=== PATIENT | female | born 1930 | race Caucasian/White ===

== ENCOUNTER 2017-08-01 01:55 | Inpatient (IN) | payer MEDICARE, OTHER ==
[2017-08-01 03:12] LABS: Hematocrit 18.6 % (36.0-47.0); Mean Platelet Volume 7.1 fL (7.4-10.4); PTT 35.4 SEC (22.9-36.1); Prothrombin Time 33.8 SEC (12.0-14.7); Red Blood Cell (RBC) Count 2.57 mill/uL (4.20-5.40); White Blood Cell (WBC) Count 23.6 thou/uL (4.8-10.8)
[2017-08-01 03:29] LABS: ALT (SGPT) 9 U/L (8-55); AST (SGOT) 12 U/L (5-34); Alkaline Phosphatase 70 U/L (40-150); Anion Gap 11 mmol/L (10-20); BUN (Urea Nitrogen) 21 mg/dL (9.8-20.1); Bilirubin, Total 0.3 mg/dL (0.2-1.2); Calc. Creatinine Clearance 0 mL/min (70-130); Calcium 9.2 mg/dL (7.8-10.44); Carbon Dioxide 25 mmol/L (23-31); Chloride 107 mmol/L (98-107); Estimated GFR-MDRD 75; Globulin 3.1 g/dL (2.4-3.5); Protein, Total 6.3 g/dL (6.0-8.3)
[2017-08-01 03:41] LABS: Anisocytosis SLIGHT = 6-15 cells (100X) (0-5/hpf); Band 4 % (5-11); Hypochromia SLIGHT = 6-15 cells (100X) (0-5/hpf); Microcytosis SLIGHT = 6-15 cells (100X) (0-5/hpf); Neutrophil 79 % (42-75)
[2017-08-01 05:03] LABS: Iron 10 ug/dL (50-170); LDH 223 U/L (125-220); Transferrin, Serum 377 mg/dL (173-360)
[2017-08-01 05:13] LABS: Band 3 % (5-11); Elliptocytes SLIGHT = 2-5 cells (100X) (0-1/hpf); Hematocrit 18.5 % (36.0-47.0); Hypochromia MODERATE=16-30 cells (100X) (0-5/hpf); Mean Platelet Volume 7.1 fL (7.4-10.4); Microcytosis SLIGHT = 6-15 cells (100X) (0-5/hpf); Neutrophil 82 % (42-75); Polychromasia SLIGHT = 2-3 cells (100X) (0-2/hpf); Red Blood Cell (RBC) Count 2.55 mill/uL (4.20-5.40); Stomatocytes SLIGHT = 2-5 cells (100X) (0-1/hpf); White Blood Cell (WBC) Count 31.3 thou/uL (4.8-10.8)
[2017-08-01] MEDS ORDERED: Acetaminophen 325 MG TAB ONE (05:22)
[2017-08-01] MEDS ORDERED: HYDROcodone/Acetaminophen 5/325 mg Tablet PO PRN (07:22)
[2017-08-01] MEDS ORDERED: Ondansetron ODT 4 MG TAB PO PRN (07:22)
[2017-08-01] MEDS ORDERED: HYDROcodone/Acetaminophen 10/325 mg Tablet PO PRN (07:22)
[2017-08-01] MEDS ORDERED: Famotidine/PF 20 mg/2ml Vial SLOW IVP SCH (09:00)
[2017-08-01 09:24] LABS: Prothrombin Time 28.5 SEC (12.0-14.7)
--- NOTE | 2017-08-01 09:37 | HP ---
PRIMARY CARE PHYSICIAN: Marcos Rowland M.D. CHIEF COMPLAINT: Weakness. HISTORY OF PRESENT ILLNESS: Ms. Torre is a pleasant 87-year-old white female with history of hypert ension, hyperlipidemia, past hyperthyroidism status post partial thyroidectomy resulting in hypothyro idism and history of PEs. The patient is on chronic Coumadin. She presented to an outside emergency department complaining of weakness. It started about 3 weeks a go, it seemed to get slowly progressive. She feels very weak and tired. She had some increased dysp adrienne on exertion associated with it, but no PND or orthopnea. At the outside ER, labs were checked and showed a hemoglobin of 5 and a hematocrit of 17. She was gi sol vitamin K and FFP due to concern for GI bleed, though she had no history of melena, hematochezia, or hematemesis. She was transferred here for blood transfusion. Here evaluation was largely the same. Hemoglobin was 5.2. INR is 3.1 despite the FFP and the fresh frozen plasma. She was slightly tachycardic, but the highest ever got was 103. Her blood pressure h as been running 100/60. We were called for admission for symptomatic anemia. To me, the patient does specifically denied having any rectal bleeding or hematemesis. She had no ne w medications. She has had no recent travel or food borne illnesses. She denies any chest pain or n ausea, and vomiting. No diarrhea or constipation. No syncope, presyncope, or orthostasis symptoms. PAST MEDICAL HISTORY: 1. Essential hypertension. 2. Hyperlipidemia. 3. Pulmonary emboli. 4. Surgical hypothyroidism. 5. Long-term anticoagulation with Coumadin. PAST SURGICAL HISTORY: Include: 1. Partial hysterectomy, vaginal approach. 2. Partial thyroidectomy. HOME MEDICATIONS: 1. Ultracet 37.5/325 one tablet as needed. 2. Zocor 40 mg p.o. at bedtime. 3. Vitamin D2 of 50,000 units orally every week. 4. Norvasc 2.5 mg daily. 5. Remeron 15 mg p.o. at bedtime. 6. Valium 5 mg p.o. as needed for anxiety. 7. Hyzaar 100/25 1/2 tablet every morning. 8. Coumadin 2.5 mg daily. 9. Levothyroxine daily, dose unknown. ALLERGIES: To CODEINE causes headache. FAMILY HISTORY: Negative for clotting or bleeding disorders. No immune dysfunction, no hematologic cancers. SOCIAL HISTORY: Negative for habits x3. She is for the last couple of years and lives with her daughter. REVIEW OF SYSTEMS: A 10-point review of systems was performed, negative for all other systems except as stated as per HPI. PHYSICAL EXAMINATION: VITAL SIGNS: Temperature 98.2, pulse 103, blood pressure 99/66, respiratory rate 18, satting 98% on 4 liters. GENERAL: She is awake. She is alert. She is oriented x3. She is an obese, elderly female, who alyssa ears pale, but in no acute distress. HEENT: Normocephalic, atraumatic. Pupils equal, reactive bilaterally, mucous membranes moist, witho ut visible lesions or thrush. NECK: Supple with no lymphadenopathy, JVD, or thyromegaly with normal carotid upstrokes. LUNGS: Clear, she has no wheezes, no rales, no rhonchi. No prolonged expiratory phase and good air movement. Symmetrical chest excursion. CARDIOVASCULAR: Shows normal S1, S2. She is slightly tachycardic, but regular. She has a faint 2/6 systolic ejection murmur best heard at the left upper sternal border without radiation. ABDOMEN: Obese, it is nontender, nondistended, no mass or organomegaly. EXTREMITIES: Show no cyanosis, no clubbing with 1+ edema of the lower extremities to just above the ankles. SKIN: Warm, moist, well perfused. She has no rashes, no lesions. MUSCULOSKELETAL EXAM: Normal to inspection without any palpable joint effusions or arthritis. NEUROLOGIC EXAM: Cranial nerves II through XII are grossly intact without any focal neurologic defic its. She has normal speech pattern and 5/5 strength. LABORATORY DATA: CMP is normal. Creatinine is 0.74, potassium 3.8. Sodium 139 and calcium of 9.2. Glucose 133. Liver functions are normal including total bilirubin. CBC showed a white count of 23. 6. She has 79% granulocytes with 4% bands, hemoglobin is 5.2, hematocrit of 18.6, and platelet count is 406,000. RADIOGRAPHIC STUDIES: None. ASSESSMENT AND PLAN: 1. Symptomatic anemia: We will transfuse 2 units of packed red blood cells and watch her hemoglobin and hematocrit closely. 2. Leukocytosis with bandemia: I am concerned this may be a hematologic malignancy. I have ordered LDH, haptoglobin, iron studies, and reticulocyte count. If her LDH is elevated, she will need a Hem atology consult. 3. History of pulmonary embolus with chronic anticoagulation. Patient has no signs of bleeding at t his point. We will keep her on the Coumadin for the time being. She had FFP and vitamin K with mini mal reversal. We will not attempt to reverse any further at this point. 4. Hypertension. Continue home medications. 5. Hyperlipidemia. Hold Zocor right now. 6. Hypothyroidism on levothyroxine, dose unknown. We will hold treatment for today.
[2017-08-01] MEDS: Pantoprazole 40 MG VIAL IVP SCH ×2 (10:26→20:48)
[2017-08-01 10:32] VITALS: BMI 34.4
--- NOTE | 2017-08-01 11:26 | PDOC.EVN ---
Event Note - Event Note Event Note: Pt seen and examined.chart reviewed.care discussed w pt and son at bedside. s/p 2 unit PRBC.repeat H/H pending. hemodynamically stable. feels a little better. VSS. appears pale and weak. CTA b/l.No abd tenderness,distension. Will follow labs. Pt will need both GI and hematology f/u. FOBt negative and no hematochezia or melena.But pt is on coumadin.Will request GI recs .GI bleed less likley.hold coumadin for now.Last EGD/Colonoscopy 15 years ago. Peripheral smear pending.high LDH.Doubt hemolysis. Hematological malignancy can not be ruled out given leucocytosis .If GI w/u negative,will consult Oncology for possible BM biopsy. For now, given presentation w symptomatic severe anemia w hypotension and supratherapeutic INR,will chnage to Inpatient.Pt not stable for Dc without further work up. Hold BP meds as Bp marginal
[2017-08-01] MEDS ORDERED: FLU VACC TS2017-18 (>65YR) 0.5 ML SYRINGE IM ONE (11:45)
[2017-08-01 14:10] LABS: Hematocrit 24.7 % (36.0-47.0)
[2017-08-01] MEDS: Sodium Chloride 0.9% 1,000 ML IV SCH ×2 (15:25→18:32)
--- NOTE | 2017-08-01 16:28 | CON ---
DATE OF CONSULTATION: 08/01/2017 REQUESTING PHYSICIAN: Dr. Hardy. REASON FOR CONSULTATION: Iron deficiency anemia. HISTORY OF PRESENT ILLNESS: Nandini Torre is a very pleasant 87-year-old woman. She has a history of pulmonary embolus 6-7 years ago and has been on warfarin since then. She denies any prior bleeding complications from this. She reports having had a normal EGD and colonoscopy about 15 years ago. Nicole peck was admitted to the hospital after being transferred from an outside ER with severe symptomatic ane eb. She reports that over the past 3 weeks she has had some progressive weakness, worsening to dysp adrienne on exertion. In the outside ER, her hemoglobin was 5. I am not sure what her INR was there, but she was given FFP. By the time of transfer here, her INR was still elevated at 3.1 and today it is still 2.6, hemoglobin was 5.2 and she is currently getting transfused with RBCs. BUN is only 21 with creatinine 0.74. Notably, through all of this, the patient denies any overt bleeding from anywhere. No vaginal bleeding, no epistaxis, no hematemesis, no melena or hematochezia that she can see. She says her bowel movements are essentially regular with some occasional mild constipation which is wel l controlled. She denies any abdominal pain, heartburn or dysphagia. She is not on any acid suppres araceli. Labs do demonstrate iron deficiency, but they also demonstrated an elevated LDH and a leukocyt osis which is quite striking of 31.3. Peripheral smear and haptoglobin are pending. Evidently her F OBT was negative at the outside facility, but I do not see documentation of that other than the admis araceli note. REVIEW OF SYSTEMS: Full review of systems including constitutional, head, eyes, ears, nose, throat, GI, , cardiovascular, respiratory, musculoskeletal, and neurologic systems is negative except as no donte in the HPI. PAST MEDICAL HISTORY: Hypertension, hyperlipidemia, thyroidectomy, pulmonary embolus 6-7 years ago, on chronic warfarin since then, partial hysterectomy, reported normal EGD and colonoscopy 15 years ag o. SOCIAL HISTORY: No smoking, alcohol, or drug use. FAMILY HISTORY: Noncontributory. ALLERGIES: CODEINE. OUTPATIENT MEDICATIONS: Ultracet, Zocor, vitamin D2, Norvasc, Remeron, Valium, Hyzaar, Coumadin 2.5 mg daily, levothyroxine daily. PHYSICAL EXAMINATION: VITAL SIGNS: Temperature 98.3, pulse 82, blood pressure 106/67, 99% oxygen saturation on 3 liters na yadiel cannula. GENERAL: An 87-year-old woman lying comfortably in bed. She appears pale, but in no acute distress. SKIN: She is pale, no jaundice, no rashes were palpable. EYES: No scleral icterus. Extraocular movements intact. ENT: Mucous membranes moist, no oral lesions. LYMPH: No submandibular, supraclavicular lymphadenopathy. THYROID: Nontender to palpation. HEART: Regular rate and rhythm. LUNGS: Clear to auscultation bilaterally. ABDOMEN: Obese, bowel sounds present, soft, nondistended, nontender to palpation throughout. EXTREMITIES: No peripheral edema. VESSELS: Radial pulses 2+ bilaterally. NEUROLOGICAL: Cranial nerves II-XII intact bilaterally. No focal deficits. LABORATORY STUDIES: WBC 31.3, hemoglobin 5.2, MCV 72.3, platelets 398. Ferritin low at 2.26. Iron 10, TIBC 471, 2% iron saturation, BUN 21, creatinine 0.74, sodium 139, potassium 3.8, glucose 133. L DH elevated to 223. Peripheral smear is pending. INR initially elevated at 3.1, trended down to 2.6 . FOBT evidently negative in the outside ER. ASSESSMENT AND PLAN: 1. Iron deficiency anemia, severe, symptomatic. 2. Leukocytosis, unexplained. 3. Warfarin coagulopathy. The patient certainly has clear iron deficiency anemia, but this is in th e context of no overt bleeding, on chronic Coumadin for a long time. Occult gastrointestinal bleedin g lesion is certainly a possibility. On the other hand, she does have the striking leukocytosis and elevated LDH, and I share some concern for possible hematologic malignancy or bone marrow process. A t this time, I would advise holding the Coumadin and letting the INR trend down to a safer level for potential EGD and colonoscopy. In the meantime, continue with hematologic workup. We will not plan to perform any procedures tomorrow since we are waiting for the INR to normalize. We will let her ea t today, have her on clear liquid diet tomorrow, consider bowel perforation for EGD and colonoscopy, perhaps Wednesday or the next day. Thank you for the consultation. Please call with questions or concerns.
[2017-08-01 21:30] LABS: Bilirubin Negative (Negative); Blood, Urine Large (Negative); Glucose, Urine (Dipstick) Negative (Negative); Ketone, Urine Negative (Negative); Nitrite Negative (Negative); Protein, Urine (Dipstick) Negative (Neg-Trace); Urobilinogen 0.2 mg/dL (0.2-1.0)
[2017-08-01 21:32] LABS: Bacteria/HPF 1+ HPF (None Seen); Hyaline Casts/LPF 7-10 HYALINE CAST LPF (0-3 Hyaline); WBC/HPF 0-3 HPF (0-3)
[2017-08-02] MEDS: Sodium Chloride 0.9% 1,000 ML IV SCH ×2 (00:45→12:01)
[2017-08-02 05:38] LABS: Anion Gap 11 mmol/L (10-20); BUN (Urea Nitrogen) 13 mg/dL (9.8-20.1); Calc. Creatinine Clearance 83 mL/min (70-130); Calcium 8.7 mg/dL (7.8-10.44); Carbon Dioxide 24 mmol/L (23-31); Chloride 109 mmol/L (98-107); Estimated GFR-MDRD 75
[2017-08-02 05:51] LABS: #Basophils 0.1 thou/uL (0.0-0.2); #Eosinphils 0.2 thou/uL (0.0-0.7); #Lymphocytes 5.1 thou/uL (1.20-3.40); #Neutrophils 15.5 thou/uL (1.40-6.50); %Basophils 0.4 % (0.0-1.0); %Eosinophils 0.7 % (0.0-10.0); %Lymphocytes 22.3 % (21.0-51.0); %Monocytes 8.9 % (0.0-10.0); Anisocytosis SLIGHT = 6-15 cells (100X) (0-5/hpf); Hematocrit 24.3 % (36.0-47.0); Hypochromia SLIGHT = 6-15 cells (100X) (0-5/hpf); Mean Platelet Volume 7.8 fL (7.4-10.4); Red Blood Cell (RBC) Count 3.05 mill/uL (4.20-5.40); White Blood Cell (WBC) Count 22.9 thou/uL (4.8-10.8)
[2017-08-02] MEDS: Pantoprazole 40 MG VIAL IVP SCH ×2 (08:23→21:03)
[2017-08-02] MEDS: Acetaminophen 325 MG TAB PO PRN (08:23)
[2017-08-02] MEDS ORDERED: GoLYTELY 4,000 ml Bottle PO SCH (10:15)
--- NOTE | 2017-08-02 10:33 | PRG ---
DATE OF SERVICE: 08/02/2017 GASTROINTESTINAL INPATIENT DAILY PROGRESS NOTE SUBJECTIVE: Ms. Torre is feeling okay, but quite weak. She had some nasal congestion last night wh ich is better now. She spiked a fever this morning, but really did not feel that subjectively. Ther e is no cough, no pain. No melena or hematochezia. PHYSICAL EXAMINATION: VITAL SIGNS: Temperature 101.3, pulse 99, blood pressure 118/77, 95% oxygen saturation on 2 liters n mal cannula. GENERAL: Pale, no acute distress. HEART: Regular rate and rhythm. LUNGS: Clear to auscultation bilaterally. ABDOMEN: Bowel sounds present, soft and nontender to palpation. EXTREMITIES: No peripheral edema. LABORATORY STUDIES: WBC down to 22.9, hemoglobin 7.2, platelets 282. INR down to 2.0. Sodium 140, potassium 3.6, BUN 13, creatinine 0.74. Peripheral smear review is still pending. ASSESSMENT AND PLAN: 1. Iron deficiency anemia. 2. Warfarin coagulopathy, INR now trending down. 3. Leukocytosis, improving. Cause of the anemia remains unknown. She certainly has iron deficiency , but that does not explain the leukocytosis, lack of any overt bleeding despite being on Coumadin. From a GI standpoint, we will proceed with the endoscopic workup tomorrow. Administer bowel preparat ion tonight and plan for EGD and colonoscopy tomorrow, rule out occult bleeding lesion. I discussed this with the patient who desires to proceed.
--- NOTE | 2017-08-02 11:42 | PDOC.PN ---
- Subjective Encounter Start Date: 08/02/17 Encounter Start Time: 11:40 Subjective: still feels very weak and tired. no hematochezia/melena/hemetemesis -: low grade fever. no cough/SOB.denies dysuria/diarrhea/AP - Objective MAR Reviewed: Yes Vital Signs & Weight: Vital Signs (12 hours) Temp Pulse Resp BP Pulse Ox 08/02/17 09:05 101.3 F H 99 20 118/77 95 08/02/17 08:00 101.3 F H 99 20 98 08/02/17 04:00 99.2 F 106 H 20 113/60 93 L I&O: 08/01/17 08/02/17 08/03/17 06:59 06:59 06:59 Intake Total 2270 Output Total 1150 Balance 1120 Result Diagrams: 08/02/17 04:19 08/02/17 04:19 Additional Labs: Laboratory Tests 08/01/17 08/01/17 08/01/17 02:47 02:47 04:20 WBC 23.6 H Hgb 5.2 L* Plt Count 406 H INR 3.1 Iron 10 L % Saturation 2 L Transferrin 377 H Ferritin Lactate Dehydrogenase 223 H 08/01/17 08/01/17 08/01/17 04:20 04:20 09:08 WBC 31.3 H Hgb 5.2 L* Plt Count 398 INR 2.6 Iron % Saturation Transferrin Ferritin 2.26 L Lactate Dehydrogenase 08/01/17 08/02/17 08/02/17 14:04 04:19 04:19 WBC 22.9 H Hgb 7.6 L 7.2 L Plt Count 282 INR 2.0 Iron % Saturation Transferrin Ferritin Lactate Dehydrogenase Phys Exam - Physical Examination Constitutional: NAD pale,tired looking HEENT: PERRLA, moist MMs, sclera anicteric, oral pharynx no lesions Neck: no nodes, no JVD, supple, full ROM Respiratory: no wheezing, no rales, no rhonchi, clear to auscultation bilateral Cardiovascular: RRR, no significant murmur Gastrointestinal: soft, non-tender, no distention, positive bowel sounds Musculoskeletal: no edema, pulses present Neurological: non-focal, normal sensation, moves all 4 limbs Psychiatric: normal affect, A&O x 3 Skin: no rash Dx/Plan (1) Symptomatic anemia Code(s): D64.9 - ANEMIA, UNSPECIFIED Status: Acute (2) Fever Code(s): R50.9 - FEVER, UNSPECIFIED Status: Acute (3) UTI (urinary tract infection) Status: Suspected (4) Leucocytosis Code(s): D72.829 - ELEVATED WHITE BLOOD CELL COUNT, UNSPECIFIED Status: Acute (5) Chronic anticoagulation Code(s): Z79.01 - 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 -: appreciate GI input.Monitor INR.has be <2 for procedure -: Leucocytosis better but no clear explanation.? Infection.has fever -: will start empiric ABx for possible UTI.check CXR. -: will request hematology input for other causes of severe anemia * .cont to hold BP meds as BP on lower normal side. * am labs Review of Systems - Review of Systems Constitutional: Fever, Weakness, Malaise. negative: Chills, Sweats, Other Respiratory: negative: Cough, Dry, Shortness of Breath, Hemoptysis, SOB with Excertion, Pleuritic Pain, Sputum, Wheezing Cardiovascular: negative: Chest Pain, Palpitations, Orthopnea, Paroxysmal Noc. Dyspnea, Edema, Light Headedness, Other Gastrointestinal: negative: Nausea, Vomiting, Abdominal Pain, Diarrhea, Constipation, Melena, Hematochezia, Other Genitourinary: negative: Dysuria, Frequency, Incontinence, Hematuria, Retention , Other Musculoskeletal: negative: Neck Pain, Shoulder Pain, Arm Pain, Back Pain, Hand Pain, Leg Pain, Foot Pain, Other Neurological: negative: Weakness, Numbness, Incoordination, Change in Speech, Confusion, Seizures, Other - Medications/Allergies Allergies/Adverse Reactions: Allergies Allergy/AdvReac Type Severity Reaction Status Date / Time codeine Allergy Verified 08/01/17 10:29 Medications: Current Medications Acetaminophen (Tylenol) 650 mg PO Q4H PRN PRN Reason: Headache/Fever or Pain Last Admin: 08/02/17 08:23 Dose: 650 mg Hydrocodone Bitart/Acetaminophen (Eola 10/325) 1 tab PO Q4H PRN PRN Reason: Severe Pain (7-10) Hydrocodone Bitart/Acetaminophen (Eola 5/325) 1 tab PO Q4H PRN PRN Reason: Moderate Pain (4-6) Atorvastatin Calcium (Lipitor) 20 mg PO HS RASHEED Sodium Chloride (Normal Saline 0.9%) 1,000 mls @ 50 mls/hr IV .Q20H RASHEED Levofloxacin 750 mg/ Device 150 mls @ 100 mls/hr IVPB Q24HR RASHEED Ondansetron HCl (Zofran Odt) 4 mg PO Q6H PRN PRN Reason: Nausea/Vomiting Pantoprazole Sodium (Protonix) 40 mg IVP Q12HR RASHEED Last Admin: 08/02/17 08:23 Dose: 40 mg Polyethylene Glycol/Electrolytes (Golytely) 4,000 ml PO NOW RASHEED Stop: 08/02/17 12:00 Sodium Chloride (Flush - Normal Saline) 10 ml IVF PRN PRN PRN Reason: Saline Flush Last Admin: 08/01/17 20:49 Dose: 10 ml
--- NOTE | 2017-08-02 16:16 | RAD ---
PORTABLE AP CHEST: Date: 08-02-17 History: Fever, cough. FINDINGS: There is mild elevation of the right hemidiaphragm. Cardiac silhouette and pulmonary vasculature are within normal limits. There is minimal patchy density seen in the retrocardiac region left lung base which could be related to either atelectasis or focal area of pneumonitis. No obvious pleural effusio n is seen. There are degenerative changes noted in the spine. There is prominent left glenohumeral os teoarthropathy. Radiopaque catheter overlies the lower left neck. IMPRESSION: 1. Patchy density retrocardiac region left lung base which may be related to atelectasis; although, f ocal area of pneumonitis is a possibility. Follow up to resolution is recommended. 2. Elevation right hemidiaphragm. POS: SARAH
--- NOTE | 2017-08-02 20:57 | CON ---
DATE OF CONSULTATION: 08/02/2017 REASON FOR CONSULTATION: Anemia and leukocytosis. HISTORY OF PRESENT ILLNESS: Ms. Torre is a pleasant 87-year-old female with a past medical history of pulmonary embolism on anticoagulation. Over the past 4 weeks, has gotten increasingly short of breath and weak. She presented to the emergency room in [place] and had a hemoglobin of 5.1, her white count was 21.6 and her INR was 3.1. She was transferred to this facility for blood transfusion and workup for possible GI bleed. The patient admits to a past history of iron deficient anemia, but has not been on any iron pills for several years. She had a pulmonary embolism approximately 5 years ago, circumstances surrounding this embolism are unknown. She has been on Coumadin since that time and is managed by her primary care. She denies any hematuria, hematochezia, melena or epistaxis. She states she has been in her usual state of health until 4 weeks ago. Since admission, she has received 2 units of packed RBCs with improvement in her hemoglobin to 7.2. Her white count peaked at 31.3 and is now 22.9, her platelet count was mildly elevated at 406,000 on admission and is now at 282,000. She began to have a temperature this morning of 101.3 and is currently being worked up for infection. We were asked to see the patient regarding her elevated white count and anemia. PAST MEDICAL HISTORY: 1. Hypertension. 2. Hyperlipidemia. 3. Thyroidectomy. 4. Pulmonary embolism. 5. Iron deficient anemia. 6. Partial hysterectomy. PAST SURGICAL HISTORY: Colonoscopy 15 years ago. ALLERGIES: CODEINE. HOME MEDICATIONS: 1. Amlodipine 2.5 mg daily. 2. [place] eyedrops daily. 3. Losartan/hydrochlorothiazide daily. 4. Remeron 0.5 mg daily. 5. Zocor 40 mg daily. 6. Tramadol p.r.n. 7. Coumadin 2.5 mg daily. FAMILY HISTORY: No family history of GI or hematological malignancy. SOCIAL HISTORY: , lives with her daughter. No alcohol, tobacco or illicit drug use. REVIEW OF SYSTEMS: Constitutional: Denies fever, chills, night sweats, recent weight loss or gain. Eyes: No blurred or double vision. ENT: No pain, hoarseness, sore throat, or dysphagia. Cardiovascular: No chest pain, palpitations or syncope. Respiratory: Positive for shortness of breath, dyspnea on exertion. Gastrointestinal: No nausea, vomiting, diarrhea, constipation or abdominal pain. Genitourinary: No dysuria or hematuria. Musculoskeletal: No joint or back pain. Skin: No rash or pruritus. Hematologic: No bleeding, bruising or clotting. Neurologic: Positive for weakness, no headache, numbness, tingling or seizure activity. Psychiatric: Denies anxiety or depression. PHYSICAL EXAMINATION: VITAL SIGNS: Temperature is 101.3, pulse is 117, respiratory rate is 20, blood pressure is 118/77. She is 95% on 2 liters. GENERAL: This is a well-developed, well-nourished female, in no acute distress. HEENT: Normocephalic, atraumatic. Pupils equal and reactive to light. NECK: Supple. CARDIOVASCULAR: Regular rate and rhythm. LUNGS: Clear to auscultation. ABDOMEN: Soft, nontender, bowel sounds are positive. No organomegaly palpable. EXTREMITIES: No clubbing, cyanosis or edema. SKIN: No rash. HEMATOLOGIC: No petechia or purpura. NEUROLOGICAL: Nonfocal. PSYCHIATRIC: The patient is alert and oriented and appropriate. LYMPHATIC: There is no palpable lymphadenopathy. PERTINENT LABORATORY DATA AND X-RAY FINDINGS: Current WBCs are 22.9, hemoglobin 7.2, hematocrit 24.3, MCV is 79.8 and platelets are 282. She is at 67% neutrophils, 22% lymphocytes, 10% monocytes. PT is 23, INR is 2. Sodium is 140, potassium 3.6, chloride 109, CO2 is 24, BUN is 13, creatinine 0.74, calcium is 8.7. Iron is 10, TIBC is 471 and iron saturation is 2%, transferrin is 377, ferritin is 2.26, total bilirubin is 0.3, AST is 12, ALT is 9, alkaline phosphatase is 70. LDH is 223, serum total protein 6.3, albumin 3.2, globulin 3.1. Urine showed 1+ bacteria and moderate leukocyte esterase, negative nitrite. Chest x-ray is pending. ASSESSMENT: 1. Severe symptomatic anemia. 2. Iron deficiency. 3. Leukocytosis. 4. Febrile illness. DISCUSSION: The patient has been transfused 2 units. We will transfuse additional units for hemoglobin less than 7. She will need a dose of IV iron, which I ordered today. She is having colonoscopy tomorrow to rule out any malignancy. We will also check peripheral smear. I suspect her leukocytosis is reactive. She has been started on antibiotics for her fever. We will follow her CBC closely. Thank you for the consult. NASREEN
[2017-08-02] MEDS: Atorvastatin Calcium 20 MG TAB PO SCH (21:03)
[2017-08-03 05:38] LABS: Prothrombin Time 17.4 SEC (12.0-14.7)
[2017-08-03 05:58] LABS: #Eosinphils 0.1 thou/uL (0.0-0.7); #Lymphocytes 4.8 thou/uL (1.20-3.40); #Monocytes 2.1 thou/uL (0.11-0.59); #Neutrophils 14.2 thou/uL (1.40-6.50); %Basophils 0.2 % (0.0-1.0); %Eosinophils 0.3 % (0.0-10.0); %Lymphocytes 22.7 % (21.0-51.0); Hematocrit 21.4 % (36.0-47.0); Mean Platelet Volume 7.7 fL (7.4-10.4); Red Blood Cell (RBC) Count 2.67 mill/uL (4.20-5.40); White Blood Cell (WBC) Count 21.2 thou/uL (4.8-10.8)
[2017-08-03 06:04] LABS: Anion Gap 12 mmol/L (10-20); BUN (Urea Nitrogen) 10 mg/dL (9.8-20.1); Calc. Creatinine Clearance 84 mL/min (70-130); Calcium 8.7 mg/dL (7.8-10.44); Carbon Dioxide 24 mmol/L (23-31); Chloride 112 mmol/L (98-107); Estimated GFR-MDRD 76
[2017-08-03] MEDS ORDERED: Sodium Chloride 0.65% Nasal 44 ML BOT EA NARE PRN (07:46)
[2017-08-03] MEDS ORDERED: Loratadine 10 MG TAB PO PRN (07:46)
[2017-08-03] MEDS ORDERED: Diabetic Tussin 200 MG/10 ML UDCUP PO PRN (07:46)
[2017-08-03] MEDS ORDERED: Mag-Al 1200 mg/1200 mg/30 ML UDCUP PO PRN (07:46)
[2017-08-03] MEDS ORDERED: Loperamide HCl 2 MG CAP PO PRN (07:46)
[2017-08-03] MEDS ORDERED: hydrALAZINE 20 MG/ML VIAL SLOW IVP PRN (07:46)
[2017-08-03] MEDS ORDERED: Eucerin (Mineral Oil/Petrolatum,White) 30 gm Jar TOP PRN (07:46)
[2017-08-03] MEDS ORDERED: Senokot 8.6 MG TAB PO PRN (07:46)
[2017-08-03] MEDS ORDERED: Milk Of Magnesia 30 ML UDCUP PO PRN (07:46)
[2017-08-03] MEDS: Sodium Chloride 0.9% 1,000 ML IV SCH (08:27)
[2017-08-03] MEDS: Pantoprazole 40 MG VIAL IVP SCH ×2 (08:28→21:15)
[2017-08-03] MEDS: Famotidine 20 MG TAB PO SCH ×2 (08:28→21:15)
--- NOTE | 2017-08-03 11:38 | PDOC.PN ---
- Subjective Encounter Start Date: 08/03/17 Encounter Start Time: 10:50 -: old records requested/rev pt is very weak, no bleeding from any site, son present bedside - Objective MAR Reviewed: Yes Vital Signs & Weight: Vital Signs (12 hours) Temp Pulse Pulse Resp BP BP Pulse Ox 08/03/17 08:34 99.7 F H 84 20 135/70 93 L 08/03/17 08:00 99.7 F H 85 20 08/03/17 06:00 99.6 F 82 18 110/59 L 92 L 08/03/17 00:00 100 F H 109 H 20 144/74 H 93 L I&O: 08/02/17 08/03/17 08/04/17 06:59 06:59 06:59 Intake Total 2270 0 Output Total 1150 Balance 1120 0 Result Diagrams: 08/03/17 04:09 08/03/17 04:09 Phys Exam - Physical Examination Constitutional: NAD HEENT: PERRLA, moist MMs, sclera anicteric Neck: no JVD, supple Respiratory: no wheezing, no rales, no rhonchi Cardiovascular: RRR, no significant murmur, no rub Gastrointestinal: soft, non-tender, no distention, positive bowel sounds Musculoskeletal: pulses present, edema present Neurological: non-focal, normal sensation Lymphatic: no nodes Psychiatric: normal affect Skin: no rash, normal turgor Dx/Plan (1) Fever Code(s): R50.9 - FEVER, UNSPECIFIED Status: Acute (2) Leucocytosis Code(s): D72.829 - ELEVATED WHITE BLOOD CELL COUNT, UNSPECIFIED Status: Acute (3) Symptomatic anemia Code(s): D64.9 - ANEMIA, UNSPECIFIED Status: Acute (4) Chronic anticoagulation Code(s): Z79.01 - ASSISTED (CURRENT) USE OF ANTICOAGULANTS Status: Chronic (5) Dyslipidemia Code(s): E78.5 - HYPERLIPIDEMIA, UNSPECIFIED Status: Chronic (6) HTN (hypertension) Code(s): I10 - ESSENTIAL (PRIMARY) HYPERTENSION Status: Chronic (7) History of pulmonary embolism Code(s): Z86.711 - PERSONAL HISTORY OF PULMONARY EMBOLISM Status: Chronic (8) Obesity (BMI 30-39.9) Code(s): E66.9 - OBESITY, UNSPECIFIED Status: Chronic (9) UTI (urinary tract infection) Status: Suspected - Plan cont current plan of care, plan discussed w/ family, continue antibiotics, PT/OT , health care social worker * today plan for EGD and colonoscopy * today will transfuse one unit PRBC * pt will need placement on discharge * continue selected home meds * medication reviewed as below * symptomatic treatment. * continue levaquin * so far culture negative * discussed with son Review of Systems - Review of Systems Constitutional: Weakness, Malaise. negative: Fever, Chills, Sweats, Other ENT: negative: Ear Pain, Ear Discharge, Nose Pain, Nose Discharge, Nose Congestion, Mouth Pain, Mouth Swelling, Throat Pain, Throat Swelling, Other Respiratory: SOB with Excertion. negative: Cough, Dry, Shortness of Breath, Hemoptysis, Pleuritic Pain, Sputum, Wheezing Cardiovascular: negative: Chest Pain, Palpitations, Orthopnea, Paroxysmal Noc. Dyspnea, Edema, Light Headedness, Other Gastrointestinal: negative: Nausea, Vomiting, Abdominal Pain, Diarrhea, Constipation, Melena, Hematochezia, Other Genitourinary: negative: Dysuria, Frequency, Incontinence, Hematuria, Retention , Other Musculoskeletal: negative: Neck Pain, Shoulder Pain, Arm Pain, Back Pain, Hand Pain, Leg Pain, Foot Pain, Other Skin: negative: Rash, Lesions, Abdifatah, Bruising, Other - Medications/Allergies Allergies/Adverse Reactions: Allergies Allergy/AdvReac Type Severity Reaction Status Date / Time codeine Allergy Verified 08/01/17 10:29 Medications: Current Medications Acetaminophen (Tylenol) 650 mg PO Q4H PRN PRN Reason: Headache/Fever or Pain Last Admin: 08/02/17 08:23 Dose: 650 mg Hydrocodone Bitart/Acetaminophen ([place] 10/325) 1 tab PO Q4H PRN PRN Reason: Severe Pain (7-10) Hydrocodone Bitart/Acetaminophen ([place] 5/325) 1 tab PO Q4H PRN PRN Reason: Moderate Pain (4-6) Al Hydroxide/Mg Hydroxide (Maalox) 15 ml PO Q4H PRN PRN Reason: Heartburn or Indigestion Atorvastatin Calcium (Lipitor) 20 mg PO HS [facility] Last Admin: 08/02/17 21:03 Dose: 20 mg Famotidine (Pepcid) 20 mg PO BID [facility] Last Admin: 08/03/17 08:28 Dose: 20 mg Guaifenesin (Robitussin Sf) 200 mg PO Q4H PRN PRN Reason: Cough Hydralazine HCl (Apresoline) 10 mg SLOW IVP Q4H PRN PRN Reason: Systolic BP > 180 Sodium Chloride (Normal Saline 0.9%) 1,000 mls @ 50 mls/hr IV .Q20H [facility] Last Admin: 08/03/17 08:27 Dose: 1,000 mls Levofloxacin 750 mg/ Device 150 mls @ 100 mls/hr IVPB Q24HR [facility] Last Admin: 08/02/17 12:00 Dose: 150 mls Loperamide HCl (Imodium) 2 mg PO PRN PRN PRN Reason: Diarrhea/Loose Stools Loratadine (Claritin) 10 mg PO DAILYPRN PRN PRN Reason: Sinus Symptoms Magnesium Hydroxide (Milk Of Magnesium) 30 ml PO DAILYPRN PRN PRN Reason: Constipation Mineral Oil/White Petrolatum (Eucerin Cream) 0 gm TOP BIDPRN PRN PRN Reason: Dry Skin Ondansetron HCl (Zofran Odt) 4 mg PO Q6H PRN PRN Reason: Nausea/Vomiting Pantoprazole Sodium (Protonix) 40 mg IVP Q12HR [facility] Last Admin: 08/03/17 08:28 Dose: 40 mg Senna (Senokot) 2 tab PO HSPRN PRN PRN Reason: Constipation Sodium Chloride (Flush - Normal Saline) 10 ml IVF PRN PRN PRN Reason: Saline Flush Last Admin: 08/03/17 08:28 Dose: 10 ml Sodium Chloride ([place] Nasal [place] 0.65%) 0 ml EA NARE QIDPRN PRN PRN Reason: Nasal Congestion
[2017-08-03] MEDS ORDERED: Lidocaine 1% PF 5 ML VIAL ONE (14:01)
[2017-08-03] MEDS ORDERED: Ondansetron HCl/PF 4 MG/2 ML Vial IVP PRN (16:27)
[2017-08-03] MEDS: Atorvastatin Calcium 20 MG TAB PO SCH (21:15)
[2017-08-04 05:06] LABS: #Basophils 0.1 thou/uL (0.0-0.2); #Eosinphils 0.3 thou/uL (0.0-0.7); #Lymphocytes 4.2 thou/uL (1.20-3.40); #Monocytes 1.8 thou/uL (0.11-0.59); #Neutrophils 10.3 thou/uL (1.40-6.50); %Basophils 0.8 % (0.0-1.0); %Eosinophils 1.7 % (0.0-10.0); %Monocytes 10.6 % (0.0-10.0); Hematocrit 27.1 % (36.0-47.0); Mean Platelet Volume 8.8 fL (7.4-10.4); Red Blood Cell (RBC) Count 3.36 mill/uL (4.20-5.40); White Blood Cell (WBC) Count 16.6 thou/uL (4.8-10.8)
[2017-08-04 05:11] LABS: Prothrombin Time 15.7 SEC (12.0-14.7)
[2017-08-04 05:29] LABS: Anion Gap 10 mmol/L (10-20); BUN (Urea Nitrogen) 8 mg/dL (9.8-20.1); Calc. Creatinine Clearance 84 mL/min (70-130); Carbon Dioxide 25 mmol/L (23-31); Chloride 110 mmol/L (98-107); Estimated GFR-MDRD 76
--- NOTE | 2017-08-04 06:52 | OP ---
PROCEDURES: Esophagogastroduodenoscopy and colonoscopy. PREPROCEDURE DIAGNOSES: 1. Severe iron deficiency anemia. 2. Chronic anticoagulation. POSTPROCEDURE DIAGNOSES: 1. Esophagogastroduodenoscopy was notable for a 10-cm sliding type hiatal hernia. No Kyle's ulce rs or erosions were noted in the hernia sac. 2. However, just below the level of the hiatal hernia at 40 cm in the gastric mucosa. There was a l inear ulcer that consistent with Ykle erosion. Biopsies were taken from this. It was white base and not bleeding. 3. Biopsies taken from the small bowel to rule out malabsorption. 4. Area of colitis was noted in the splenic flexure and descending colon consistent with ischemic co litis. It is unclear if this was a cause of the anemia, more likely it was an effect of the profound anemia, biopsies were taken and submitted to pathology. Colonoscopy was otherwise normal. ANESTHESIA: TIVA. RECOMMENDATIONS: 1. Hold anticoagulation. 2. Iron supplementation. 3. PPI therapy. PROCEDURE IN DETAIL: After the patient was informed of the risks, benefits, and possible complicatio ns of endoscopy including perforation, bleeding, reactions to medication and aspiration, informed con sent was obtained. The patient was brought to endoscopy suite where she was sedated in gradual fashi on. Once she was comfortable, a bite block was placed in incisural orifice. The endoscope was advanced through the esophagus, stomach, and second and third portion of duodenum. The esophagus was normal. There was a hiatal hernia 10 cm in size, sliding type, which was normal wi th no evidence of erosions or ulcerations in the hiatal hernia sac. However, just below the level of 40 cm in the body of the stomach, there was erosion on the greater curvilinear, white-based with no bleeding, this was biopsied. It appeared benign. This may be a Kyle's erosion. The remainder of the stomach was normal in forward and retroflexed views. The duodenum was normal to the third porti on, and biopsies were obtained. The scope was removed. The patient was turned in the room. A rectal examination was performed. The endoscope was advanced through the colon to the cecum, which was identified by ileocecal valve and a ppendiceal orifice. There was an area of edema, erythema, and ulceration with predominant antimesent jeffery border location along the splenic flexure and descending colon. This is very consistent with is chemic colitis. Multiple biopsies were obtained and submitted to Pathology. No other lesions were s een. Retroflexed views were normal. The scope was removed. The patient tolerated the procedure wel l with no complications.
[2017-08-04] MEDS ORDERED: Furosemide 20 MG/2 ML VIAL SLOW IVP SCH (08:15)
[2017-08-04] MEDS: Famotidine 20 MG TAB PO SCH (08:20)
[2017-08-04] MEDS: Pantoprazole 40 MG VIAL IVP SCH ×2 (08:22→20:43)
[2017-08-04] MEDS: Iron Polysaccharides Complex 150 MG CAP PO SCH (08:28)
[2017-08-04] MEDS: Sodium Chloride 0.9% 1,000 ML IV SCH (08:36)
--- NOTE | 2017-08-04 12:30 | PDOC.PN ---
- Subjective Encounter Start Date: 08/04/17 Encounter Start Time: 07:15 Subjective: sob+ on exertion, feels weak - Objective MAR Reviewed: Yes Vital Signs & Weight: Vital Signs (12 hours) Temp Pulse Resp BP Pulse Ox Pulse Ox 08/04/17 09:07 93 L 08/04/17 09:04 96 08/04/17 08:20 98.8 F 93 22 H 158/82 H 96 08/04/17 08:00 98.8 F 93 22 H I&O: 08/03/17 08/04/17 08/05/17 06:59 06:59 06:59 Intake Total 1300 Balance 1300 Result Diagrams: 08/04/17 04:41 08/04/17 04:41 Phys Exam - Physical Examination HEENT: PERRLA, moist MMs Neck: no JVD, supple Respiratory: no wheezing rales+b/l Cardiovascular: RRR, no significant murmur Gastrointestinal: soft, non-tender, no distention, positive bowel sounds Musculoskeletal: no edema, pulses present Neurological: non-focal, moves all 4 limbs Psychiatric: A&O x 3 Dx/Plan (1) Symptomatic anemia Code(s): D64.9 - ANEMIA, UNSPECIFIED Status: Acute Comment: recieved a total of 3 units prbc (2) Dyslipidemia Code(s): E78.5 - HYPERLIPIDEMIA, UNSPECIFIED Status: Chronic (3) HTN (hypertension) Code(s): I10 - ESSENTIAL (PRIMARY) HYPERTENSION Status: Chronic Qualifiers: Hypertension type: essential hypertension Qualified Code(s): I10 - Essential (primary) hypertension (4) History of pulmonary embolism Code(s): Z86.711 - PERSONAL HISTORY OF PULMONARY EMBOLISM Status: Chronic (5) Obesity (BMI 30-39.9) Code(s): E66.9 - OBESITY, UNSPECIFIED Status: Chronic (6) UTI (urinary tract infection) Status: Suspected Qualifiers: Urinary tract infection type: acute cystitis Hematuria presence: without hematuria Qualified Code(s): N30.00 - Acute cystitis without hematuria - Plan is on protonix iv q12h, h/h:05/02 -: may switch levaquin to oral -: dc iv fluids, one dose lasix for vol overload -: PT to mobilize patient as tolerated -: will need HH with PT on discharge * . Review of Systems - Medications/Allergies Allergies/Adverse Reactions: Allergies Allergy/AdvReac Type Severity Reaction Status Date / Time codeine Allergy Verified 08/01/17 10:29 Medications: Current Medications Acetaminophen (Tylenol) 650 mg PO Q4H PRN PRN Reason: Headache/Fever or Pain Last Admin: 08/02/17 08:23 Dose: 650 mg Hydrocodone Bitart/Acetaminophen ([place] 10/325) 1 tab PO Q4H PRN PRN Reason: Severe Pain (7-10) Hydrocodone Bitart/Acetaminophen ([place] 5/325) 1 tab PO Q4H PRN PRN Reason: Moderate Pain (4-6) Al Hydroxide/Mg Hydroxide (Maalox) 15 ml PO Q4H PRN PRN Reason: Heartburn or Indigestion Atorvastatin Calcium (Lipitor) 20 mg PO HS [facility] Last Admin: 08/03/17 21:15 Dose: 20 mg Famotidine (Pepcid) 20 mg PO BID [facility] Last Admin: 08/04/17 08:20 Dose: 20 mg Guaifenesin (Robitussin Sf) 200 mg PO Q4H PRN PRN Reason: Cough Hydralazine HCl (Apresoline) 10 mg SLOW IVP Q4H PRN PRN Reason: Systolic BP > 180 Levofloxacin 750 mg/ Device 150 mls @ 100 mls/hr IVPB Q24HR [facility] Last Admin: 08/04/17 11:04 Dose: 150 mls Loperamide HCl (Imodium) 2 mg PO PRN PRN PRN Reason: Diarrhea/Loose Stools Loratadine (Claritin) 10 mg PO DAILYPRN PRN PRN Reason: Sinus Symptoms Magnesium Hydroxide (Milk Of Magnesium) 30 ml PO DAILYPRN PRN PRN Reason: Constipation Mineral Oil/White Petrolatum (Eucerin Cream) 0 gm TOP BIDPRN PRN PRN Reason: Dry Skin Ondansetron HCl (Zofran Odt) 4 mg PO Q6H PRN PRN Reason: Nausea/Vomiting Pantoprazole Sodium (Protonix) 40 mg IVP Q12HR [facility] Last Admin: 08/04/17 08:22 Dose: 40 mg Polysaccharide Iron Complex (Niferex) 150 mg PO QAM[facility] Last Admin: 08/04/17 08:28 Dose: 150 mg Senna (Senokot) 2 tab PO HSPRN PRN PRN Reason: Constipation Sodium Chloride (Flush - Normal Saline) 10 ml IVF PRN PRN PRN Reason: Saline Flush Last Admin: 08/04/17 11:04 Dose: 10 ml Sodium Chloride ([place] Nasal [place] 0.65%) 0 ml EA NARE QIDPRN PRN PRN Reason: Nasal Congestion
[2017-08-04] MEDS: Acetaminophen 325 MG TAB PO PRN (20:42)
[2017-08-04] MEDS: Atorvastatin Calcium 20 MG TAB PO SCH (20:43)
[2017-08-05 08:18] LABS: Anion Gap 12 mmol/L (10-20); BUN (Urea Nitrogen) 7 mg/dL (9.8-20.1); Calc. Creatinine Clearance 89 mL/min (70-130); Calcium 8.9 mg/dL (7.8-10.44); Carbon Dioxide 26 mmol/L (23-31); Chloride 109 mmol/L (98-107); Estimated GFR-MDRD 81
[2017-08-05 08:27] LABS: Band 2 % (5-11); Hypochromia SLIGHT = 6-15 cells (100X) (0-5/hpf); Mean Platelet Volume 8.9 fL (7.4-10.4); Neutrophil 50 % (42-75); Red Blood Cell (RBC) Count 3.45 mill/uL (4.20-5.40); White Blood Cell (WBC) Count 14.4 thou/uL (4.8-10.8)
[2017-08-05] MEDS: Iron Polysaccharides Complex 150 MG CAP PO SCH (08:28)
[2017-08-05] MEDS: Pantoprazole 40 MG VIAL IVP SCH ×2 (08:28→20:32)
--- NOTE | 2017-08-05 12:33 | PDOC.PN ---
- Subjective Encounter Start Date: 08/05/17 Encounter Start Time: 08:20 Subjective: no sob or fever this morning -: is feeling better - Objective MAR Reviewed: Yes Vital Signs & Weight: Vital Signs (12 hours) Temp Pulse Resp BP BP Pulse Ox 08/05/17 11:49 95 08/05/17 11:38 98.9 F 93 16 144/65 H 93 L 08/05/17 08:00 98.2 F 85 16 94 L 08/05/17 07:55 98.2 F 85 16 124/65 95 08/05/17 05:30 98.7 F I&O: 08/04/17 08/05/17 08/06/17 06:59 06:59 06:59 Intake Total 1300 1000 Balance 1300 1000 Result Diagrams: 08/05/17 07:48 08/05/17 07:48 Phys Exam - Physical Examination HEENT: PERRLA, sclera anicteric pallor+ Neck: no nodes, no JVD Respiratory: no wheezing, no rales Cardiovascular: RRR, no significant murmur Gastrointestinal: soft, non-tender, positive bowel sounds Musculoskeletal: pulses present Neurological: non-focal, moves all 4 limbs Psychiatric: A&O x 3 Dx/Plan (1) Symptomatic anemia Code(s): D64.9 - ANEMIA, UNSPECIFIED Status: Acute Comment: recieved a total of 3 units prbc (2) Dyslipidemia Code(s): E78.5 - HYPERLIPIDEMIA, UNSPECIFIED Status: Chronic (3) HTN (hypertension) Code(s): I10 - ESSENTIAL (PRIMARY) HYPERTENSION Status: Chronic Qualifiers: Hypertension type: essential hypertension Qualified Code(s): I10 - Essential (primary) hypertension (4) History of pulmonary embolism Code(s): Z86.711 - PERSONAL HISTORY OF PULMONARY EMBOLISM Status: Chronic (5) Obesity (BMI 30-39.9) Code(s): E66.9 - OBESITY, UNSPECIFIED Status: Chronic (6) UTI (urinary tract infection) Status: Suspected Qualifiers: Urinary tract infection type: acute cystitis Hematuria presence: without hematuria Qualified Code(s): N30.00 - Acute cystitis without hematuria - Plan is on levaquin for uti -: oral iron -: wbc around 14 today -: will need outpt f/u with onc -: GI w/u was -ve for serious bleed to drop Hb to 5g * . Review of Systems - Medications/Allergies Allergies/Adverse Reactions: Allergies Allergy/AdvReac Type Severity Reaction Status Date / Time codeine Allergy Verified 08/01/17 10:29 Medications: Current Medications Acetaminophen (Tylenol) 650 mg PO Q4H PRN PRN Reason: Headache/Fever or Pain Last Admin: 08/04/17 20:42 Dose: 650 mg Hydrocodone Bitart/Acetaminophen ([place] 10/325) 1 tab PO Q4H PRN PRN Reason: Severe Pain (7-10) Last Admin: 08/04/17 23:35 Dose: 1 tab Hydrocodone Bitart/Acetaminophen ([place] 5/325) 1 tab PO Q4H PRN PRN Reason: Moderate Pain (4-6) Al Hydroxide/Mg Hydroxide (Maalox) 15 ml PO Q4H PRN PRN Reason: Heartburn or Indigestion Atorvastatin Calcium (Lipitor) 20 mg PO HS [facility] Last Admin: 08/04/17 20:43 Dose: 20 mg Guaifenesin (Robitussin Sf) 200 mg PO Q4H PRN PRN Reason: Cough Hydralazine HCl (Apresoline) 10 mg SLOW IVP Q4H PRN PRN Reason: Systolic BP > 180 Levofloxacin (Levaquin) 500 mg PO 0600 [facility] Last Admin: 08/05/17 05:32 Dose: 500 mg Loperamide HCl (Imodium) 2 mg PO PRN PRN PRN Reason: Diarrhea/Loose Stools Loratadine (Claritin) 10 mg PO DAILYPRN PRN PRN Reason: Sinus Symptoms Magnesium Hydroxide (Milk Of Magnesium) 30 ml PO DAILYPRN PRN PRN Reason: Constipation Mineral Oil/White Petrolatum (Eucerin Cream) 0 gm TOP BIDPRN PRN PRN Reason: Dry Skin Ondansetron HCl (Zofran Odt) 4 mg PO Q6H PRN PRN Reason: Nausea/Vomiting Pantoprazole Sodium (Protonix) 40 mg IVP Q12HR [facility] Last Admin: 08/05/17 08:28 Dose: 40 mg Polysaccharide Iron Complex (Niferex) 150 mg PO QAM-[facility] Last Admin: 08/05/17 08:28 Dose: 150 mg Senna (Senokot) 2 tab PO HSPRN PRN PRN Reason: Constipation Sodium Chloride (Flush - Normal Saline) 10 ml IVF PRN PRN PRN Reason: Saline Flush Last Admin: 08/05/17 08:28 Dose: 10 ml Sodium Chloride ([place] Nasal [place] 0.65%) 0 ml EA NARE QIDPRN PRN PRN Reason: Nasal Congestion
[2017-08-05] MEDS: Atorvastatin Calcium 20 MG TAB PO SCH (20:32)
[2017-08-06] MEDS: Acetaminophen 325 MG TAB PO PRN (01:09)
[2017-08-06 04:55] LABS: #Basophils 0.1 thou/uL (0.0-0.2); #Eosinphils 0.6 thou/uL (0.0-0.7); #Lymphocytes 5.8 thou/uL (1.20-3.40); %Basophils 0.6 % (0.0-1.0); %Lymphocytes 37.5 % (21.0-51.0); %Monocytes 12.7 % (0.0-10.0); Hematocrit 27.4 % (36.0-47.0); Mean Platelet Volume 7.6 fL (7.4-10.4); White Blood Cell (WBC) Count 15.5 thou/uL (4.8-10.8)
[2017-08-06 05:03] LABS: Anion Gap 5 mmol/L (10-20); BUN (Urea Nitrogen) 8 mg/dL (9.8-20.1); Calc. Creatinine Clearance 90 mL/min (70-130); Calcium 8.9 mg/dL (7.8-10.44); Carbon Dioxide 33 mmol/L (23-31); Chloride 106 mmol/L (98-107); Estimated GFR-MDRD 82
[2017-08-06 07:59] VITALS: BP 165/89; TEMP 98
[2017-08-06] MEDS: Iron Polysaccharides Complex 150 MG CAP PO SCH (08:55)
--- NOTE | 2017-08-06 10:28 | RAD ---
PORTABLE CHEST: Date: 08/06/17 HISTORY: Follow-up of infiltrate. COMPARISON: 08/02/17 exam. FINDINGS: Heart size is within normal limits. Retrocardiac density is again noted. This may possibly represent a large hiatal hernia. A lateral chest film is recommended for assessment. IMPRESSION: Persistent retrocardiac density. I suspect this is possibly a large hiatal hernia. A lateral chest fi lm is recommended to assess whether this is truly infiltrate or hiatal hernia that is causing this de nsity. POS: FLOYD
--- NOTE | 2017-08-06 14:45 | PDOC.PN ---
- Subjective Encounter Start Date: 08/06/17 Encounter Start Time: 07:15 Subjective: breathing better -: no chest pain or bleeding - Objective MAR Reviewed: Yes Vital Signs & Weight: Vital Signs (12 hours) Temp Pulse Resp BP Pulse Ox 08/06/17 08:00 98 F 98 16 91 L 08/06/17 07:58 98 F 98 16 165/89 H 95 08/06/17 04:00 98.7 F 08/06/17 03:00 98.8 F I&O: 08/05/17 08/06/17 08/07/17 06:59 06:59 06:59 Intake Total 1000 1000 240 Balance 1000 1000 240 Result Diagrams: 08/06/17 04:12 08/06/17 04:12 Phys Exam - Physical Examination HEENT: PERRLA, moist MMs Neck: no JVD, supple Respiratory: no wheezing, no rales Cardiovascular: RRR, no significant murmur Gastrointestinal: soft, non-tender, positive bowel sounds Musculoskeletal: no edema, pulses present Neurological: non-focal, moves all 4 limbs Psychiatric: normal affect, A&O x 3 Dx/Plan (1) Symptomatic anemia Code(s): D64.9 - ANEMIA, UNSPECIFIED Status: Acute Comment: recieved a total of 3 units prbc (2) Dyslipidemia Code(s): E78.5 - HYPERLIPIDEMIA, UNSPECIFIED Status: Chronic (3) HTN (hypertension) Code(s): I10 - ESSENTIAL (PRIMARY) HYPERTENSION Status: Chronic Qualifiers: Hypertension type: essential hypertension Qualified Code(s): I10 - Essential (primary) hypertension (4) History of pulmonary embolism Code(s): Z86.711 - PERSONAL HISTORY OF PULMONARY EMBOLISM Status: Chronic (5) Obesity (BMI 30-39.9) Code(s): E66.9 - OBESITY, UNSPECIFIED Status: Chronic (6) UTI (urinary tract infection) Status: Suspected Qualifiers: Urinary tract infection type: acute cystitis Hematuria presence: without hematuria Qualified Code(s): N30.00 - Acute cystitis without hematuria - Plan hemostable -: dc pt to snf today -: will need outpt f/u with onco to r/o MDS -: another 4 more days of levaquin for uti, blood cs are -ve * .
--- NOTE | 2017-08-07 07:57 | DIS ---
DATE OF ADMISSION: 08/01/2017 DATE OF DISCHARGE: 08/06/2017 DISCHARGE DISPOSITION: To [facility] bed. PRIMARY DISCHARGE DIAGNOSES: Symptomatic anemia with transfusion of 3 units of packed cell with uncl ear etiology, leukocytosis likely due to urinary tract infection. SECONDARY DISCHARGE DIAGNOSES: Hypertension, history of pulmonary embolism, obesity, and dyslipidemi a. PROCEDURES DONE DURING HOSPITALIZATION: The patient has had upper and lower endoscopies done by Dr. Villafuerte. EGD showed a 10-cm sliding type hiatal hernia and no Kyle's ulcers or erosions were seen in the hernia sac. Just below the hiatal hernia at 40 cm in the gastric mucosa, there was a linear u lcer consistent with Kyle erosion, this had a white base with no bleeding. There were areas of co litis seen in the splenic flexure and descending colon consistent with ischemic colitis. Histopathol ogy of the biopsies taken with endoscopies showed small bowel to be unremarkable, no evidence of bob ac sprue was seen. Stomach ulcer showed mild reactive gastropathy consistent with adjacent ulcer/ero araceli, no H. pylori organism was identified. Large intestine, splenic flexure, and descending colon b iopsy revealed active erosive colitis. Discharge H&H are 8.3 and 27, platelet count of 240, had a wh ite count of 15. Admitting H&H were 5.2 and 18. White count of 23. Haptoglobin was 217, ferritin l evels were 2.26. Serum iron was low at 10. LDH was 223. Initial INR was 3.1 with discharge numbers of 1.2. DISCHARGE MEDICATIONS: Ferrous sulfate 325 mg p.o. twice daily, Norvasc 2.5 mg p.o. daily, albuterol nebulizer q.6 hourly p.r.n., Levaquin 500 mg p.o. daily for another 4 days for her UTI, losartan wit h hydrochlorothiazide 100/25 mg half a tablet p.o. daily, mirtazapine 7.5 mg p.o. at bedtime, Protoni x 40 mg p.o. daily, simvastatin 40 mg p.o. daily. ALLERGIES: CODEINE. INPATIENT CONSULTS: Dr. Villafuerte for Gastroenterology and Ms. oJsey Amato for Hematology/Oncology. BRIEF COURSE DURING HOSPITALIZATION: The patient got admitted on 08/01/2017 with complaints of gener alized weakness. She was found to have had hemoglobin of 5. The patient also had exertional shortne ss of breath. The patient was transfused nearly 3 units of packed cells. She has had consultation w carla Villafuerte. She has had upper and lower endoscopies done, the results have described above. Als o, Coumadin was reversed with vitamin K and FFP initially on arrival in the ER. The patient had a wh ite count of 23.6 with 4% bands and temperature of 98, this was on arrival. In view of this, she was placed on broad spectrum antibiotics initially. Her urine culture grew E. coli more than 100,000, s ensitive to all antibiotics. She has remained hemodynamically stable. Please note patient's Coumadi n has been held all through her stay here. She is also on Protonix daily. The patient needs to have a repeat CBC on a weekly basis until her H&H shows improvement. She is on oral ferrous sulfate with severe iron deficiency. Again, it is unclear if her urinary tract infection caused her white count to go up to 25,000. She needs followup with Oncology in 2-4 weeks to see for complete resolution of her leukocytosis with complete treatment for urinary tract infection. Her discharge white count is s till 15. A total of 35 minutes was spent on discharge plan. Please see a [id number] documentation on [facility] for the day of discharge.
--- NOTE | 2017-09-07 14:18 | EKG ---
Test Reason : Blood Pressure : / mmHG Vent. Rate : 101 BPM Atrial Rate : 101 BPM P-R Int : 188 ms QRS Dur : 068 ms QT Int : 322 ms P-R-T Axes : 040 -08 086 degrees QTc Int : 417 ms Sinus tachycardia Nonspecific T wave abnormality Abnormal ECG Confirmed by MARNI TRAN D.O. ([id number]), editorial writer EDA BOLIVAR ([id number]) on 09/07/2017 2:17:50 PM Referred By: Confirmed By:MARNI TRAN D.O.
== END 2017-08-06 13:47 | DRG 812 ==
LOC: ERS 01:55 → T4-A 06:15 → OBSVTOIN 11:16
PROVIDERS: ADMIT Internal Medicine Infectious Disease; ATTEND Internal Medicine Infectious Disease
PROC: 30233N1 Transfusion of Nonautologous Red Blood Cells into Peripheral Vein, Percutaneous Approach (ICD-10-PCS; 2017-08-01)
PROC: 0DB98ZX Excision of Duodenum, Via Natural or Artificial Opening Endoscopic, Diagnostic (ICD-10-PCS; principal; 2017-08-03)
PROC: 0DB68ZX Excision of Stomach, Via Natural or Artificial Opening Endoscopic, Diagnostic (ICD-10-PCS; 2017-08-03)
PROC: 0DBM8ZX Excision of Descending Colon, Via Natural or Artificial Opening Endoscopic, Diagnostic (ICD-10-PCS; 2017-08-03)
PROC: 0DBL8ZX Excision of Transverse Colon, Via Natural or Artificial Opening Endoscopic, Diagnostic (ICD-10-PCS; 2017-08-03)
DX: D50.9 Iron deficiency anemia, unspecified (principal); I95.9 Hypotension, unspecified; K55.9 Vascular disorder of intestine, unspecified; K25.9 Gastric ulcer, unspecified as acute or chronic, without hemorrhage or perforation; N30.00 Acute cystitis without hematuria; I10 Essential (primary) hypertension; E78.5 Hyperlipidemia, unspecified; Z79.01 Long term (current) use of anticoagulants; E89.0 Postprocedural hypothyroidism; Z86.711 Personal history of pulmonary embolism; Z88.5 Allergy status to narcotic agent; E66.9 Obesity, unspecified; Z68.34 Body mass index [BMI] 34.0-34.9, adult; K44.9 Diaphragmatic hernia without obstruction or gangrene; B96.20 Unspecified Escherichia coli [E. coli] as the cause of diseases classified elsewhere
CPT/HCPCS: 36415; 36430; 71010; 80048; 80053; 81001; 82274; 82728; 83010; 83540; 83550; 83615; 84466; 85025; 85060; 85610; 85730; 86850; 86900; 86901; 87077; 87086; 87186; 88305; 88312; 90471; 90682; 90732; 93005; C9113; G0008; G0009; G8978-GP-CK; G8979-GP-CI; G8987-GO-CM; G8988-GO-CI; J1750; J1940; J1956; J2001; J7050; J7620; P9016; Q2036